=== PATIENT | female | born 1995 | race Caucasian/White ===

== ENCOUNTER 2025-01-13 10:51 | Day surgery (SDC) | payer SELFPAY ==
[2025-01-13] MEDS ORDERED: hydrALAZINE 20 MG/ML VIAL SLOW IVP PRN (11:33)
== END 2025-01-13 11:35 | disposition home or self-care (01) ==
LOC: CSHLD/OP 10:51
PROVIDERS: ATTEND Family Medicine
DX: Z36.89 Encounter for other specified antenatal screening (principal); Z3A.37 37 weeks gestation of pregnancy; Z67.10 Type A blood, Rh positive
CPT/HCPCS: 99284

== ENCOUNTER 2025-01-28 05:11 | Inpatient (IN) | payer MEDICAID, OTHER ==
[2025-01-27 11:58] LABS: Hematocrit 36.8 % (34.9-44.5); Hemoglobin 12.2 g/dL (12.0-15.5); Platelet Count 326 10x3/uL (150-450)
[2025-01-27 12:36] LABS: HIV (1/2) Antibody/Antigen Non-Reactive (NonReactive); HIV 1/2 INDEX 0.17 S/CO (<1.00)
[2025-01-27 12:38] LABS: Hep B Surf Ag Non-Reactive S/CO (NonReactive); Syphilis Antibody Index 0.08 S/CO (<1.00 Non-Reactive)
[2025-01-28] MEDS ORDERED: Methylergonovine 0.2 MG/ML VIAL IM PRN ×2 (05:33→14:53)
[2025-01-28] MEDS ORDERED: Tranexamic Acid 1,000 MG/10 ML VIAL IVP PRN (05:33)
[2025-01-28] MEDS ORDERED: Ondansetron PF 4 MG/2 ML Vial IVP PRN ×6 (05:33→14:53)
[2025-01-28] MEDS ORDERED: hydrALAZINE 20 MG/ML VIAL SLOW IVP PRN ×2 (05:33→14:53)
[2025-01-28] MEDS ORDERED: Diphenoxylate HCl/Atropine Tablet PO PRN ×2 (05:33)
[2025-01-28] MEDS ORDERED: Carboprost 250 MCG/ML AMP IM PRN (05:33)
[2025-01-28] MEDS ORDERED: Bicitra 30 ML UDCUP PO PRN (05:33)
[2025-01-28] MEDS ORDERED: Oxytocin 30 units/NS 500 ML 500 ML IV SCH ×2 (05:45→14:53)
[2025-01-28] MEDS: Famotidine/PF 20 mg/2ml Vial SLOW IVP PRN (06:56)
[2025-01-28] MEDS ORDERED: Meperidine HCl/PF 25 MG (1 mL) VIAL SLOW IVP PRN ×2 (07:33→12:50)
[2025-01-28] MEDS ORDERED: diphenhydrAMINE 50 MG/ML VIAL IVP PRN ×2 (07:33→12:50)
[2025-01-28] MEDS ORDERED: Communication Order-Pharmacy FS SCH ×2 (07:45→13:00)
[2025-01-28] MEDS ORDERED: HYDROmorphone 0.5 MG/0.5 ML SYRINGE SLOW IVP PRN (12:50)
[2025-01-28] MEDS ORDERED: Ketorolac Tromethamine 30 MG (1 mL) VIAL IVP PRN (12:50)
[2025-01-28] MEDS ORDERED: Ketorolac Tromethamine 30 MG (1 mL) VIAL IVP SCH (13:00)
[2025-01-28] MEDS ORDERED: Lanolin Ointment 7 GM TUBE TOP PRN (14:53)
[2025-01-28] MEDS ORDERED: Measles/Mumps/Rubella 10 MCG/0.5 ML VIAL SC ONE (14:53)
[2025-01-28] MEDS ORDERED: Bisacodyl 10 MG SUPP PR PRN (14:53)
[2025-01-28] MEDS ORDERED: diphenhydrAMINE 25 MG CAP PO PRN (14:53)
[2025-01-28] MEDS: Ketorolac Tromethamine 30 MG (1 mL) VIAL ONE (14:59)
[2025-01-28] MEDS: Phenylephrine 40 MG/NS 250 ML 250 ML ONE (14:59)
[2025-01-28] MEDS: Oxytocin 10 UNITS/ML VIAL ONE (14:59)
[2025-01-28] MEDS: PHENYLEPHRINE-NS 100 MCG/ML 10 ML SYRINGE ONE (14:59)
[2025-01-28] MEDS: Ketorolac Tromethamine 30 MG (1 mL) VIAL IVP SCH (15:11)
[2025-01-28] MEDS: Ferrous Sulfate 325 MG TAB PO SCH ×2 (19:13→21:18)
[2025-01-28] MEDS: Acetaminophen 325 MG TAB PO PRN (19:36)
[2025-01-28] MEDS ORDERED: HYDROcodone/Acetaminophen 5/325 mg Tablet PO PRN (19:45)
[2025-01-28] MEDS: Ketorolac Tromethamine 30 MG (1 mL) VIAL IVP PRN (21:14)
[2025-01-28] MEDS: HYDROcodone/Acetaminophen 5/325 mg Tablet PO PRN (23:32)
[2025-01-29] MEDS: Simethicone Chewable 80 MG TAB PO PRN (03:22)
[2025-01-29 03:54] LABS: Hematocrit 30.4 % (34.9-44.5); Hemoglobin 10.1 g/dL (12.0-15.5); Mean Corpuscular Hemoglobin 27.1 pg (27.0-33.0); Mean Corpuscular Volume 81.5 fL (81.6-98.3); Platelet Count 264 10x3/uL (150-450); Red Blood Cell (RBC) Count 3.73 10x6/uL (3.90-5.03); White Blood Cell (WBC) Count 8.29 10x3/uL (3.5-10.5)
[2025-01-29] MEDS: Ibuprofen 800 MG TAB PO SCH (13:35)
[2025-01-30 07:49] VITALS: BP 116/71; TEMP 98.2
== END 2025-01-30 11:34 | disposition home or self-care (01) | DRG 788 ==
LOC: CSHLD 05:11 → CSHPP 14:15
PROVIDERS: ADMIT Family Medicine; ATTEND Family Medicine
PROC: 10D00Z1 Extraction of Products of Conception, Low, Open Approach (ICD-10-PCS; principal; 2025-01-28)
DX: O34.211 Maternal care for low transverse scar from previous cesarean delivery (principal); Z3A.39 39 weeks gestation of pregnancy; Z37.0 Single live birth
CPT/HCPCS: 36415; 51702; 85014; 85018; 85027; 85049; 86780; 86850; 86900; 86901; 87340; 87389; J1308; J1885; J2274; J2590; J3010